=== PATIENT | male | born 1970 | race Caucasian/White ===

== ENCOUNTER 2018-08-30 10:51 | Emergency (ER) | payer OTHER ==
[~2018-08-30] VITALS: Ht 182.9 cm; Wt 121.1 kg
[~2018-08-30 10:51] MED LIST: Bactrim Ds Tab1 EACH PO; CEPH500 PO; GLIP5ER PO; Metformin HCl1000 MG PO; Prinivil10 MG PO
[2018-08-30] MEDS ORDERED: Flonase 0.05% N16 GM (11:51)
== END 2018-08-30 12:03 | disposition home or self-care (01) ==
LOC: ER 10:51
DX: J06.9 Acute upper respiratory infection, unspecified (principal); Z79.899 Other long term (current) drug therapy; Z79.84 Long term (current) use of oral hypoglycemic drugs; I10 Essential (primary) hypertension; E11.9 Type 2 diabetes mellitus without complications
CPT/HCPCS: 99283